=== PATIENT | female | born 1970 | race Caucasian/White ===

== ENCOUNTER 2016-10-18 16:17 | Emergency (ER) | payer MEDICAID ==
[2016-10-18 16:27] VITALS: RESP 18
[2016-10-18] MEDS ORDERED: NS 1,000 ML IV ONE ×2 (16:28→17:29)
[2016-10-18] MEDS ORDERED: ONDANSETRON 4 MG/2 ML VIAL IVP ONE (16:37)
[2016-10-18] MEDS ORDERED: LORazepam 2 MG/ML INJ IVP ONE ×2 (17:28→17:38)
[2016-10-18] MEDS ORDERED: chlordiazePOXIDE 25 MG CAP PO ONE (17:28)
--- NOTE | 2016-10-18 17:34 | EDPHY ---
H & P Stated Complaint: ETOH w/d. last drink 0900 Source: Patient, EMS Exam Limitations: No limitations - Personal History Tetanus Vaccine Date: 2011 - Medical/Surgical History Hx Asthma: No Hx Chronic Respiratory Disease: No Hx Diabetes: No Hx Cardiac Disease: No Hx Renal Disease: No Hx Cirrhosis: No Hx Alcoholism: Yes Hx HIV/AIDS: No Hx Splenectomy or Spleen Trauma: No Other PMH: PMH- anxiety, panic attacks, PTSD, etoh w/d seizures. PSH- ectopic, appy - Social History Smoking Status: Current every day smoker Time Seen by Provider: 10/18/16 17:00 HPI/ROS: CHIEF COMPLAINT: alcohol withdrawals HISTORY OF PRESENT ILLNESS: 46-year-old female presents emergency department reporting that she has an alcohol withdrawals. Patient reports she drinks 1/2 gal vodka daily. She has had 2 shots of vodka today, last was at 9:00 a.m.. Patient reports 5 hours ago she started with nausea and vomiting. She has a history of alcohol withdrawal seizures. Patient reports she went to rehab and was sober for 5 months, she relapsed 1 month ago at a friend's . Patient states she has not had any alcohol withdrawal seizures since her rehab. Patient denies chest pain or shortness of breath. She reports she is interested in quitting again and has resources that will help her. [facility]. REVIEW OF SYSTEMS: A comprehensive 10 point review of systems is otherwise negative aside from elements mentioned in the history of present illness. (Mirela Barbour) - Physical Exam Exam: Physical Exam Gen: Alert and Oriented, tearful HEENT: PERRL, moist mucous membranes NECK: no meningismus CV: Tachycardic rate and regular rhythm PULM: CTAB, no wheezes ABDOMEN: soft, non tender to palpation, BS present BACK: No CVA tenderness NEURO: Neurologically grossly intact, no tongue fasciculations, no tremors EXTREMITIES: normal appearing SKIN: no rash or break in skin on exposed skin PSYCH: answers questions appropriately. (Mirela Barbour) Constitutional: Initial Vital Signs Temperature (C) 37.1 C 10/18/16 16:25 Heart Rate 110 H 10/18/16 16:25 Respiratory Rate 18 10/18/16 16:25 Blood Pressure 110/67 10/18/16 16:25 O2 Sat (%) 99 10/18/16 16:25 O2 Delivery Mode Room Air Allergies/Adverse Reactions: Penicillins Allergy (Mild, Verified 04/17/16 22:26) itches Home Medications: Medication Instructions Recorded NK [No Known Home Meds] 04/15/16 Medical Decision Making ED Course/Re-evaluation: Patient brought in by EMS with IV in place. Patient is given 1 L of normal saline, 4 mg of Zofran for nausea and vomiting. Patient has no evidence of delirium tremens. She has a benign abdominal exam. The patient is given 1 mg of lorazepam IV and 50 mg of Librium p.o. 1800-patient ambulatory with a steady gait, she is clinically sober, no tongue fasciculations, no tremors, no auditory or visual hallucinations. Patient will be discharged to the arc (Mirela Barbour) Other Provider: The patient was evaluated and managed by the Physician Sheep Sorter/ Nurse Practitioner. My co-signature indicates that I have reviewed this chart and I agree with the findings and plan of care as documented. I am the secondary supervising physician. (Felicita Retana) - Data Points Medications Given: Discontinued Medications Chlordiazepoxide (Librium 25 Mg Prepack#6) 1 btl TAKEHOME EDNOW ONE Stop: 10/18/16 17:38 Last Admin: 10/18/16 17:45 Dose: 1 btl Chlordiazepoxide HCl (Librium) 50 mg PO EDNOW ONE Stop: 10/18/16 17:29 Last Admin: 10/18/16 17:41 Dose: 50 mg Sodium Chloride (Ns) 1,000 mls @ 0 mls/hr IV EDNOW ONE; Wide Open PRN Reason: Protocol Stop: 10/18/16 16:29 Last Admin: 10/18/16 16:45 Dose: 1,000 mls Sodium Chloride (Ns) 1,000 mls @ 0 mls/hr IV ONCE ONE; Wide Open PRN Reason: Protocol Stop: 10/18/16 17:30 Last Admin: 10/18/16 18:11 Dose: Not Given Lorazepam (Ativan Injection) 2 mg IVP EDNOW ONE Stop: 10/18/16 17:39 Last Admin: 10/18/16 17:41 Dose: 2 mg Ondansetron HCl (Zofran) 4 mg IVP EDNOW ONE Stop: 10/18/16 16:38 Last Admin: 10/18/16 16:45 Dose: 4 mg Departure - Departure Disposition: Home, Routine, Self-Care Clinical Impression: Alcohol withdrawal Qualifiers: Complication of substance-induced condition: uncomplicated Qualified Code(s): F10.230 - Alcohol dependence with withdrawal, uncomplicated Condition: Good Instructions: Alcohol Withdrawal (ED), Alcohol Dependence (ED) Additional Instructions: 1. Please follow-up with the mental health resources provided in the ED today. 2. [facility] does operate a 24/7 psychiatric crisis unit located at [address] [place] [address]. The telephone number for the 24 hour crisis center is [phone]. 3. Please return to the ED if you are feeling suicidal, having thoughts of harming yourself/others or should you feel unsafe or have worsening symptoms. Referrals: [facility],. [Clinic] - 5-7 days, call for appt.
[2016-10-18] MEDS ORDERED: CHLORDIAZEPOXIDE 25MG PREPK#6 BTL TAKEHOME ONE (17:37)
[2016-10-18 18:35] VITALS: BP 128/72; PULSE 90; TEMP 98.6; O2SAT 98
== END 2016-10-18 18:35 | disposition home or self-care (01) ==
LOC: EDUNIT#
DX: F10.230 Alcohol dependence with withdrawal, uncomplicated (principal); F17.200 Nicotine dependence, unspecified, uncomplicated
CPT/HCPCS: 96374; J2060; J2405

== ENCOUNTER 2018-06-03 04:28 | Emergency (ER) | payer SELFPAY ==
--- NOTE | 2018-06-03 04:37 | EDPHY ---
H & P Time Seen by Provider: 06/03/18 04:37 HPI/ROS: HPI CHIEF COMPLAINT: Left hand pain. HISTORY OF PRESENT ILLNESS: 47-year-old female, presents emergency room with left hand pain. She states this been bothering her since Monday. She complains of sharp stabbing pain to her left hand stabbing from her wrist. She denies injury. She has had previous left arm surgery. Patient denies any chest pain or shortness of breath. Main complaint left hand pain sharp stabbing pain. No trauma. Patient denies any fever, denies any other injury. Patient complains of sharp stabbing pain through her hand from her wrist mainly palmar side. Shooting pain goes to the left 3rd 4th and 5th digit. Past Medical History: Alcohol withdrawal, anxiety, PTSD, alcoholism Past Surgical History: Left arm surgery. Social History: Denies drugs alcohol tobacco. Family History: Noncontributory ROS REVIEW OF SYSTEMS: 10 Systems were reviewed and negative with the exception of the elements mentioned in the history of present illness. Exam Constitutional triage nursing summary reviewed, vital signs reviewed, awake/ alert. Eyes normal conjunctivae and sclera, EOMI, PERRLA. HENT normal inspection, atraumatic, moist mucus membranes, no epistaxis, neck supple/ no meningismus, no raccoon eyes. Respiratory clear to auscultation bilaterally, normal breath sounds, no respiratory distress, no wheezing. Cardiovascular rate normal, regular rhythm, no murmur, no edema, distal pulses normal. Gastrointestinal soft, non-tender, no rebound, no guarding, normal bowel sounds, no distension, no pulsatile mass. Genitourinary no CVA tenderness. Musculoskeletal left upper extremity: Old scar to the left upper extremity. Left hand is neurovascular intact with good customs broker strength, good cap refill, good radial pulse. Sensation intact. Patient complains of sharp stabbing pain through her hand from her wrist mainly palmar side. Shooting pain goes to the left 3rd 4th and 5th digit. no midline vertebral tenderness, full range of motion, no calf swelling, no tenderness of extremities, no meningismus, good pulses, neurovascularly intact. Skin pink, warm, & dry, no rash, skin atraumatic. Neurologic awake, alert and oriented x 3, AAOx3, moves all 4 extremities equally, motor intact, sensory intact, CN II-XII intact, normal cerebellar, normal vision, normal speech. Psychiatric normal mood/affect. Heme/Lymph/Immune no lymphadenopathy. Differential Diagnosis: Includes but is not limited to in a particular order neuropathy, nerve pain, carpal tunnel, spasm, muscle spasm, fracture Medical Decision Making: Plan for this patient Tylenol Motrin for pain control , x-ray left hand. Re-evaluate. Re-evaluation: X-ray left hand reviewed negative for acute traumatic injury. I believe her left hand pain is either carpal tunnel versus nerve pain. She has good distal pulse, good cap refill, no discoloration. Warm extremity. She has no chest pain or shortness of breath. Recommend anti-inflammatory pain medicine Recommend ice for nerve pain Recommend Velcro wrist splint for comfort. She should follow up with her primary care doctor Return precautions discussed return emergency room if worsening symptoms questions or concerns. She is comfortable this plan. Source: Patient, EMS - Personal History Tetanus Vaccine Date: 2011 - Medical/Surgical History Hx Asthma: No Hx Chronic Respiratory Disease: No Hx Diabetes: No Hx Cardiac Disease: No Hx Renal Disease: No Hx Cirrhosis: No Hx Alcoholism: Yes Hx HIV/AIDS: No Hx Splenectomy or Spleen Trauma: No Other PMH: PMH- anxiety, panic attacks, PTSD, etoh w/d seizures. PSH- ectopic, appy - Social History Smoking Status: Current every day smoker Constitutional: Initial Vital Signs Temperature (C) 36.5 C 06/03/18 04:43 Heart Rate 63 06/03/18 04:43 Respiratory Rate 18 06/03/18 04:43 Blood Pressure 108/47 L 06/03/18 04:43 O2 Sat (%) 95 06/03/18 04:43 O2 Delivery Mode Room Air Allergies/Adverse Reactions: Penicillins Allergy (Mild, Verified 06/03/18 04:46) itches Home Medications: Medication Instructions Recorded NK [No Known Home Meds] 04/15/16 Medical Decision Making - Data Points Medications Given: Discontinued Medications Acetaminophen (Tylenol) 1,000 mg PO EDNOW ONE Stop: 06/03/18 04:44 Last Admin: 06/03/18 04:57 Dose: 1,000 mg Ibuprofen (Motrin) 800 mg PO EDNOW ONE Stop: 06/03/18 04:44 Last Admin: 06/03/18 04:58 Dose: 800 mg Departure - Departure Disposition: Home, Routine, Self-Care Clinical Impression: Hand pain Qualifiers: Laterality: left Qualified Code(s): M79.642 - Pain in left hand Condition: Good Instructions: Paresthesia (ED), Hand Sprain (ED) Additional Instructions: 1. Recommend anti-inflammatory pain medicine like Tylenol and/or Motrin 2. Wrist splint for comfort. 3. Follow up with her primary care doctor 4. Return emergency room if worsening symptoms Referrals: Patient,NotPresent [Unknown] - As per Instructions
[2018-06-03] MEDS ORDERED: ACETAMINOPHEN 500 MG TAB PO ONE (04:43)
[2018-06-03] MEDS ORDERED: IBUPROFEN 800 MG TAB PO ONE (04:43)
[2018-06-03 07:25] VITALS: BP 106/67
== END 2018-06-03 07:24 | disposition home or self-care (01) ==
LOC: EDUNIT#
DX: M79.642 Pain in left hand (principal)
CPT/HCPCS: L3984

== ENCOUNTER 2018-08-20 20:18 | Emergency (ER) | payer MEDICAID ==
--- NOTE | 2018-08-20 20:26 | EDPHY ---
H & P Smoking Status: Current every day smoker Time Seen by Provider: 08/20/18 20:26 HPI/ROS: CHIEF COMPLAINT: Mental health hold HISTORY OF PRESENT ILLNESS: Boyfriend called police because he was worried about her, patient stated to police that she wanted to stab herself in the neck. Recent alcohol ingestion, brought in on a mental health hold for suicidal ideation. Patient says she was sober for a while and started drinking alcohol heavily over the last week. Denies acute medical complaints. REVIEW OF SYSTEMS: Eye: no change in vision ENT: no sore throat Cardiac: no chest pain or syncope Pulmonary: no cough or SOB Abdomen: no vomiting, diarrhea, abdominal pain Musculoskeletal: No extremity injury or neck pain Skin: no rash Neuro: no headache Constitutional: no fever : no urinary symptoms A comprehensive 10 point review of systems is otherwise negative aside from elements mentioned in the history of present illness. PAST MEDICAL HISTORY: Includes anxiety, alcohol, appendectomy, ectopic Social history: Recent alcohol General Appearance: Alert and conversant, cooperative. Eyes: No scleral icterus. ENT, Mouth: Normal mucous membranes. Respiratory: Normal respiratory effort, breath sounds equal, lungs are clear to auscultation. Cardiovascular: Regular rate and rhythm. Gastrointestinal: Abdomen is soft and non tender. Neurological: Alert, face symmetric, normal motor and sensory in extremities. Ambulatory without assistance to the bathroom. Skin: Warm and dry, no rashes. No lacerations or abrasions. Musculoskeletal: No extremity deformity or tenderness. Psychiatric: A bit agitated, admits to depression, denies suicidal or homicidal ideation. Says she was hallucinating yesterday but not today. Emergency Department course/MDM: Patient arrives intoxicated on a mental health hold. Plan for serial exams, psychiatric evaluation when no longer intoxicated signed out to [place] with plan as above. (Henry Mckeon) Constitutional: Initial Vital Signs Temperature (C) 37 C 08/20/18 20:28 Heart Rate 74 08/20/18 20:28 Respiratory Rate 16 08/20/18 20:28 Blood Pressure 94/57 L 08/20/18 20:28 O2 Sat (%) 91 L 08/20/18 20:28 O2 Delivery Mode Room Air Allergies/Adverse Reactions: Penicillins Allergy (Mild, Verified 06/03/18 04:46) itches Home Medications: Medication Instructions Recorded NK [No Known Home Meds] 04/15/16 Medical Decision Making Other Provider: 6:14 a.m.- I evaluated the patient. She is clinically sober. She is not suicidal. She reports that her boyfriend was concerned about her because she was making suicidal statements but she actually does not feel suicidal and does not have a plan to hurt herself. She says she feels badly now because she is withdrawing from alcohol. She has a mild hand tremor and is feeling anxious. I plan to drop her M 1 hold at this point. I have ordered Librium for her. We [facility] and she is welcome there and would like to go there. (Giana Logan) - Data Points Laboratory Results: Laboratory Results 08/20/18 20:30 08/20/18 20:30 08/20/18 08/20/18 08/20/18 20:40 20:30 20:30 WBC RBC Hgb Hct MCV MCH MCHC RDW Plt Count MPV Neut % (Auto) Lymph % (Auto) [place] % (Auto) Eos % (Auto) Baso % (Auto) Nucleat RBC Rel Count Absolute Neuts (auto) Absolute Lymphs (auto) Absolute Monos (auto) Absolute Eos (auto) Absolute Basos (auto) Absolute Nucleated RBC Immature Gran % Immature Gran # Sodium 144 mEq/L mEq/L (135-145) Potassium 4.5 mEq/L mEq/L (3.5-5.2) Chloride 107 mEq/L mEq/L (97-110) Carbon Dioxide 24 mEq/l mEq/l (22-31) Anion Gap 13 mEq/L mEq/L (6-14) BUN 10 mg/dL mg/dL (7-23) Creatinine 0.6 mg/dL mg/dL (0.6-1.0) Estimated GFR > 60 Glucose 93 mg/dL mg/dL (70-100) Calcium 8.8 mg/dL mg/dL (8.5-10.4) Beta HCG, Qual NEGATIVE Salicylates < 1.0 mg/dL L mg/dL (2.0-20.0) Urine Opiates Screen NEGATIVE (NEGATIVE) Acetaminophen < 10 mcg/mL L mcg/mL (10-30) Urine Barbiturates NEGATIVE (NEGATIVE) Ur Phencyclidine Scrn NEGATIVE (NEGATIVE) Ur Amphetamine Screen NEGATIVE (NEGATIVE) U Benzodiazepines Scrn NEGATIVE (NEGATIVE) Urine Cocaine Screen NEGATIVE (NEGATIVE) U Marijuana (THC) Screen NON-NEGATIVE H (NEGATIVE) Ethyl Alcohol 375 mg/dL H mg/dL (0-10) 08/20/18 20:30 WBC 5.30 10^3/uL 10^3/uL (3.80-9.50) RBC 4.66 10^6/uL 10^6/uL (4.18-5.33) Hgb 13.7 g/dL g/dL (12.6-16.3) Hct 40.4 % % (38.0-47.0) MCV 86.7 fL fL (81.5-99.8) MCH 29.4 pg pg (27.9-34.1) MCHC 33.9 g/dL g/dL (32.4-36.7) RDW 13.4 % % (11.5-15.2) Plt Count 129 10^3/uL L 10^3/uL (150-400) MPV 9.1 fL fL (8.7-11.7) Neut % (Auto) 34.5 % L % (39.3-74.2) Lymph % (Auto) 58.1 % H % (15.0-45.0) [place] % (Auto) 3.0 % L % (4.5-13.0) Eos % (Auto) 3.6 % % (0.6-7.6) Baso % (Auto) 0.6 % % (0.3-1.7) Nucleat RBC Rel Count 0.0 % % (0.0-0.2) Absolute Neuts (auto) 1.83 10^3/uL 10^3/uL (1.70-6.50) Absolute Lymphs (auto) 3.08 10^3/uL H 10^3/uL (1.00-3.00) Absolute Monos (auto) 0.16 10^3/uL L 10^3/uL (0.30-0.80) Absolute Eos (auto) 0.19 10^3/uL 10^3/uL (0.03-0.40) Absolute Basos (auto) 0.03 10^3/uL 10^3/uL (0.02-0.10) Absolute Nucleated RBC 0.00 10^3/uL 10^3/uL (0-0.01) Immature Gran % 0.2 % % (0.0-1.1) Immature Gran # 0.01 10^3/uL 10^3/uL (0.00-0.10) Sodium Potassium Chloride Carbon Dioxide Anion Gap BUN Creatinine Estimated GFR Glucose Calcium Beta HCG, Qual Salicylates Urine Opiates Screen Acetaminophen Urine Barbiturates Ur Phencyclidine Scrn Ur Amphetamine Screen U Benzodiazepines Scrn Urine Cocaine Screen U Marijuana (THC) Screen Ethyl Alcohol Medications Given: Discontinued Medications Lorazepam (Ativan) 1 mg PO EDNOW ONE Stop: 08/21/18 01:16 Last Admin: 08/21/18 01:23 Dose: 1 mg Departure - Departure Disposition: Home, Routine, Self-Care Clinical Impression: Alcohol intoxication Qualifiers: Complication of substance-induced condition: uncomplicated Qualified Code(s): F10.920 - Alcohol use, unspecified with intoxication, uncomplicated Condition: Good Instructions: Alcohol Intoxication (ED) Additional Instructions: Please return to the emergency department if your worse in any way. Referrals: [facility],. [Clinic] - As per Instructions
[2018-08-20 20:37] LABS: PLATELET COUNT 129 10^3/uL (150-400)
[2018-08-21] MEDS ORDERED: LORazepam 1 MG TAB PO ONE (01:15)
[2018-08-21] MEDS ORDERED: LORazepam 1 MG TAB ONE (01:17)
[2018-08-21] MEDS ORDERED: CHLORDIAZEPOXIDE 25MG PREPK#6 BTL TAKEHOME ONE (06:12)
[2018-08-21] MEDS ORDERED: chlordiazePOXIDE 25 MG CAP PO ONE (06:12)
[2018-08-21 06:37] VITALS: BP 110/76
== END 2018-08-21 06:30 | disposition home or self-care (01) ==
LOC: EDUNIT#
DX: F10.920 Alcohol use, unspecified with intoxication, uncomplicated (principal)
CPT/HCPCS: 80305; G0480

== ENCOUNTER 2018-10-16 23:31 | Emergency (ER) | payer MEDICAID | END 2018-10-17 02:16 | disposition home or self-care (01) ==

== ENCOUNTER 2018-10-28 08:58 | Emergency (ER) | payer MEDICAID | END 2018-10-28 11:59 | disposition home or self-care (01) ==